=== PATIENT | male | born 1960 | race Caucasian/White ===

== ENCOUNTER → 2016-05-31 | Outpatient (REF) | payer OTHER ==
[~2016-05-31] MED LIST: ALFU10TA2 PO; AMLO5TAB2 PO; ASPI1TAB PO; FINA5TAB2 PO; GAVICHW PO; LOSA100T36 PO; LOVA40TA PO; OMEP20CA3 PO; [UNRECOGNIZED DRUG - CODE] PO
== END ==
LOC: M LAB REF 14:58
PROVIDERS: ATTEND Physician Assistant Medical
DX: R50.9 Fever, unspecified (principal)

== ENCOUNTER → 2016-12-27 | Outpatient (REF) | payer OTHER | LOC: M LABDRAW1 10:50 | PROVIDERS: ATTEND Urology | DX: R97.20 Elevated prostate specific antigen [PSA] (principal) ==

== ENCOUNTER → 2017-05-27 | Outpatient (REF) | payer OTHER ==
[2017-05-27 16:34] LABS: MAGNESIUM LEVEL 2.1 MG/DL (1.8-2.4)
[2017-05-27 16:45] LABS: TOTAL 25(OH) VITAMIN D 18.6 NG/ML (30.0-100.0)
== END ==
LOC: M LABDRAW1 15:46
DX: R10.13 Epigastric pain (principal); K20.9 Esophagitis, unspecified; K21.9 Gastro-esophageal reflux disease without esophagitis; Z12.11 Encounter for screening for malignant neoplasm of colon; R14.1 Gas pain

== ENCOUNTER → 2017-07-15 | Outpatient (CLI) | payer BC, OTHER | LOC: M RAD 15:03 | DX: J34.2 Deviated nasal septum (principal); J33.0 Polyp of nasal cavity; J30.9 Allergic rhinitis, unspecified | CPT/HCPCS: 70486 ==

== ENCOUNTER → 2017-10-20 | Outpatient (CLI) | payer BC, OTHER | LOC: M SLEEP 19:26 | DX: G47.33 Obstructive sleep apnea (adult) (pediatric) (principal) | CPT/HCPCS: 95810 ==

== ENCOUNTER → 2017-11-23 | Outpatient (CLI) | payer BC, OTHER | LOC: M SLEEP 19:30 | DX: G47.33 Obstructive sleep apnea (adult) (pediatric) (principal) | CPT/HCPCS: 95811 ==

== ENCOUNTER → 2018-01-17 | Outpatient (REF) | payer OTHER, BC | LOC: M LABDRAW1 08:47 | DX: K21.9 Gastro-esophageal reflux disease without esophagitis (principal); E55.9 Vitamin D deficiency, unspecified ==

== ENCOUNTER → 2018-08-24 | Outpatient (REF) | payer OTHER ==
[~2018-08-24] MED LIST changes: -AMLO5TAB2 PO; +AMLO5TAB6 PO; -ASPI1TAB PO; +ASPI81TA26 PO; -LOSA100T36 PO; +LOSA100T50 PO
== END ==
LOC: M LAB REF 11:56
PROVIDERS: ATTEND Orthopaedic Surgery
DX: G56.02 Carpal tunnel syndrome, left upper limb (principal)

== ENCOUNTER → 2019-01-04 | Outpatient (CLI) | payer BC, OTHER ==
[~2019-01-04] MED LIST changes: -OMEP20CA3 PO; +OMEP20CA4 PO
== END ==
LOC: M LAB 15:59
PROVIDERS: ATTEND Urology
DX: R97.20 Elevated prostate specific antigen [PSA] (principal)

== ENCOUNTER → 2019-06-09 | Outpatient (REF) | payer OTHER ==
[~2019-06-09] MED LIST changes: -ALFU10TA2 PO; +ALFU10TA3 PO; +OMEP1CAP73 PO; -OMEP20CA4 PO
== END ==
LOC: M LAB REF 16:40
PROVIDERS: ATTEND Physician Assistant Medical
DX: R50.9 Fever, unspecified (principal)

== ENCOUNTER → 2019-06-27 | Outpatient (REF) | payer OTHER ==
[2019-06-27 09:55] LABS: HEMATOCRIT 41.6 % (42.0-52.0); HEMOGLOBIN 14.1 g/dl (13.5-17.5); MEAN CORPUSCULAR HEMOGLOBIN 30.1 pg (27.0-33.0); MEAN CORPUSCULAR HGB CONC 33.9 g/dl (32.0-36.5); MEAN CORPUSCULAR VOLUME 88.7 fl (80.0-96.0); PLATELET COUNT, AUTOMATED 220 10^3/uL (150-450); RED BLOOD COUNT 4.69 10^6/uL (4.30-6.10); WHITE BLOOD COUNT 4.5 10^3/uL (4.0-10.0)
[2019-06-27 10:07] LABS: ALBUMIN 3.7 GM/DL (3.2-5.2); ALT/SGPT 33 U/L (12-78); BILIRUBIN,TOTAL 0.9 MG/DL (0.2-1.0); BLOOD UREA NITROGEN 20 MG/DL (7-18); CALCIUM LEVEL 8.5 MG/DL (8.8-10.2); CARBON DIOXIDE LEVEL 29 MEQ/L (21-32); CHLORIDE LEVEL 110 MEQ/L (98-107); CHOLESTEROL LEVEL 128 MG/DL (<200); CHOLESTEROL RISK RATIO 3.121 (<5); GLOMERULAR FILTRATION RATE > 60.0 (>49); GLUCOSE, FASTING 122 MG/DL (70-100); HDL CHOLESTEROL 41 MG/DL (>40); LDL CHOLESTEROL 76 MG/DL (<100); NON-HDL-C 87 MG/DL; POTASSIUM SERUM 4.1 MEQ/L (3.5-5.1); PROSTATIC SPECIFIC AG MONITOR 1.88 NG/ML (< 4.00); SODIUM LEVEL 142 MEQ/L (136-145); TOTAL PROTEIN 6.6 GM/DL (6.4-8.2); TRIGLYCERIDES LEVEL 54 MG/DL (<150)
[2019-06-27 11:04] LABS: HEMOGLOBIN A1c 5.6 %
== END ==
LOC: M LABDRAW1 08:06
PROVIDERS: ATTEND Internal Medicine Cardiovascular Disease
DX: I11.9 Hypertensive heart disease without heart failure (principal); E78.5 Hyperlipidemia, unspecified; R35.1 Nocturia

== ENCOUNTER 2020-02-29 14:41 | Emergency (ER) | payer BC, OTHER ==
[~2020-02-29] VITALS: Ht 170.2 cm; Wt 91.6 kg
[~2020-02-29 14:41] MED LIST changes: +AMLO1TAB24 PO; -AMLO5TAB6 PO
[2020-02-29] MEDS ORDERED: ATOR40TA75 PO (14:58)
[2020-02-29] MEDS ORDERED: SUCR1TAB56 PO (14:58)
[2020-02-29] MEDS ORDERED: MAGICMW SSP (14:58)
[2020-02-29] MEDS ORDERED: LANS30CA93 PO (14:58)
[2020-02-29] MEDS ORDERED: LEVOTAB10 PO (14:58)
[2020-02-29] MEDS ORDERED: vitamin d3 PO (14:58)
[2020-02-29] MEDS ORDERED: VALS1TAB68 PO (14:58)
[2020-02-29] MEDS ORDERED: METO1TAB87 PO (14:58)
--- NOTE | 2020-02-29 15:07 | REP ---
INDICATION: CHEST PAIN. COMPARISON: July 31, 2015.. TECHNIQUE: Single view upright AP portable radiograph. FINDINGS: The lungs are well inflated and clear. Pleural angles are sharp. Heart size is normal. Pulmonary vasculature is not increased. No significant bony abnormality. IMPRESSION: Negative portable chest x-ray. <Electronically signed by Brien Campoverde > 02/29/20 [id number]
[2020-02-29 15:12] LABS: BASO # 0.1 10^3/uL (0.0-0.2); BASO % 0.9 % (0.0-1.0); EOS # 0.1 10^3/uL (0.0-0.5); EOS % 1.3 % (0.0-3.0); HEMATOCRIT 43.9 % (42.0-52.0); LYMPH # 1.9 10^3/uL (1.5-5.0); LYMPH % 23.5 % (24.0-44.0); MEAN CORPUSCULAR HEMOGLOBIN 29.9 pg (27.0-33.0); MEAN CORPUSCULAR HGB CONC 34.2 g/dl (32.0-36.5); MEAN CORPUSCULAR VOLUME 87.6 fl (80.0-96.0); MONO # 0.6 10^3/uL (0.0-0.8); NEUTROPHILS # 5.3 10^3/uL (1.5-8.5); PLATELET COUNT, AUTOMATED 309 10^3/uL (150-450); RED BLOOD COUNT 5.01 10^6/uL (4.30-6.10)
--- NOTE | 2020-02-29 19:29 | ECGEPIP ---
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
--- NOTE | 2020-02-29 19:31 | ECGEPIP ---
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
[2020-02-29 20:10] VITALS: BP 148/89
== END 2020-02-29 20:20 | disposition home or self-care (01) ==
LOC: M ED 14:41
DX: R07.89 Other chest pain (principal); R00.1 Bradycardia, unspecified; I10 Essential (primary) hypertension; E78.5 Hyperlipidemia, unspecified; G47.33 Obstructive sleep apnea (adult) (pediatric); K21.9 Gastro-esophageal reflux disease without esophagitis; Z79.899 Other long term (current) drug therapy; Z79.82 Long term (current) use of aspirin

== ENCOUNTER → 2020-03-06 | Outpatient (CLI) | payer BC, OTHER ==
[~2020-03-06] MED LIST changes: +ATOR40TA75 PO; +LANS30CA93 PO; +LEVOTAB10 PO; +MAGICMW SSP; +METO1TAB87 PO; +SUCR1TAB56 PO; +VALS1TAB68 PO; +vitamin d3 PO
== END ==
LOC: M LABSMTC 11:25
PROVIDERS: ATTEND Internal Medicine Cardiovascular Disease
DX: Z20.828 Contact with and (suspected) exposure to other viral communicable diseases (principal)

== ENCOUNTER → 2020-03-07 | Outpatient (CLI) | payer BC, OTHER ==
[2020-03-07 15:40] LABS: BASO # 0.1 10^3/uL (0.0-0.2); BASO % 1.2 % (0.0-1.0); EOS # 0.1 10^3/uL (0.0-0.5); EOS % 0.7 % (0.0-3.0); HEMOGLOBIN 14.4 g/dl (13.5-17.5); LYMPH # 1.5 10^3/uL (1.5-5.0); LYMPH % 21.9 % (24.0-44.0); MEAN CORPUSCULAR HEMOGLOBIN 30.1 pg (27.0-33.0); MEAN CORPUSCULAR HGB CONC 33.5 g/dl (32.0-36.5); MONO # 0.6 10^3/uL (0.0-0.8); MONO % 8.5 % (0.0-5.0); NEUTROPHILS # 4.5 10^3/uL (1.5-8.5); NEUTROPHILS % 66.8 % (36.0-66.0); PLATELET COUNT, AUTOMATED 275 10^3/uL (150-450); RED BLOOD COUNT 4.78 10^6/uL (4.30-6.10); WHITE BLOOD COUNT 6.7 10^3/uL (4.0-10.0)
[2020-03-07 16:08] LABS: BLOOD UREA NITROGEN 16 MG/DL (7-18); CALCIUM LEVEL 9.3 MG/DL (8.8-10.2); CARBON DIOXIDE LEVEL 30 MEQ/L (21-32); CHLORIDE LEVEL 107 MEQ/L (98-107); CREATININE FOR GFR 0.95 MG/DL (0.70-1.30); GLOMERULAR FILTRATION RATE > 60.0 (>49); GLUCOSE, FASTING 89 MG/DL (70-100); POTASSIUM SERUM 5.2 MEQ/L (3.5-5.1); SODIUM LEVEL 140 MEQ/L (136-145)
== END ==
LOC: M PLALAB 12:04
PROVIDERS: ATTEND Internal Medicine Cardiovascular Disease
DX: R94.39 Abnormal result of other cardiovascular function study (principal); R07.9 Chest pain, unspecified

== ENCOUNTER → 2020-07-03 | Outpatient (CLI) | payer BC, OTHER ==
[2020-07-04 10:33] LABS: HEMATOCRIT 44.2 % (42.0-52.0); HEMOGLOBIN 14.5 g/dl (13.5-17.5); MEAN CORPUSCULAR HEMOGLOBIN 30.2 pg (27.0-33.0); MEAN CORPUSCULAR HGB CONC 32.8 g/dl (32.0-36.5); MEAN CORPUSCULAR VOLUME 92.1 fl (80.0-96.0); PLATELET COUNT, AUTOMATED 258 10^3/uL (150-450); WHITE BLOOD COUNT 6.4 10^3/uL (4.0-10.0)
[2020-07-04 11:09] LABS: ALBUMIN 4.2 GM/DL (3.2-5.2); ALT/SGPT 27 U/L (12-78); BILIRUBIN,DIRECT 0.2 MG/DL (0.0-0.2); BILIRUBIN,TOTAL 0.6 MG/DL (0.2-1.0); C REACTIVE PROTEIN QUANTITATIV < 0.30 MG/DL (0.00-0.30); LIPASE 137 U/L (73-393); TOTAL PROTEIN 7.2 GM/DL (6.4-8.2)
== END ==
LOC: M PLALAB 14:35
PROVIDERS: ATTEND Internal Medicine Gastroenterology
DX: R10.11 Right upper quadrant pain (principal); R14.1 Gas pain; K30 Functional dyspepsia

== ENCOUNTER → 2020-07-11 | Outpatient (CLI) | payer BC, OTHER ==
--- NOTE | 2020-07-11 10:28 | REP ---
INDICATION: RUQ ABD PAIN. COMPARISON: None. TECHNIQUE: Right upper quadrant sonography. FINDINGS: Scanning through the right upper quadrant of the abdomen demonstrates a normal sized, thin-walled gallbladder without evidence of stone or polyp. Common bile duct is normal measuring 0.5 cm in greatest diameter. There is a 0.8 cm cyst in the right lobe of the liver. There is evidence of fatty infiltration of the liver with some sparing near the gallbladder. No other focal liver lesion is seen. Liver size is normal. No pancreatic abnormality is observed. No right renal abnormality is seen. There is no evidence of ascites. The right kidney measures 10.3 x 6.0 x 5.6 cm. There are 2 right renal cysts laterally at mid pole level. These measure 1.6 and 1.2 cm in greatest diameter respectively. IMPRESSION: Evidence of fatty infiltration of the liver. Small liver cyst and right renal cysts. Otherwise negative right upper quadrant sonography. <Electronically signed by Brien Campoverde > 07/11/20 1024
== END ==
LOC: M RAD 07:35
PROVIDERS: ATTEND Internal Medicine Gastroenterology
DX: K76.0 Fatty (change of) liver, not elsewhere classified (principal); K76.89 Other specified diseases of liver; N28.1 Cyst of kidney, acquired; R10.11 Right upper quadrant pain; R14.1 Gas pain; K30 Functional dyspepsia

== ENCOUNTER → 2020-08-21 | Outpatient (CLI) | payer BC, OTHER ==
--- NOTE | 2020-08-21 09:32 | REP ---
INDICATION: ABD PAIN LUQ PAIN CHEST PAIN. COMPARISON: None. TECHNIQUE/RADIOTRACER AND DOSE: Following the intravenous administration of 1.05 mCi technetium 99 M sulfur colloid in 2 scrambled eggs and 6 oz of water, multiple images of the upper abdomen are performed in the anterior and posterior projections for 90 minutes. FINDINGS: The gastric activity is measured. At the end of 90 minutes 7% of the ingested activity has emptied from the stomach. The T1/2 is 604 minutes which is markedly increased. IMPRESSION: Markedly increased gastric emptying time. <Electronically signed by Grady Espino > 08/21/20 0994
== END ==
LOC: M RAD 07:35
PROVIDERS: ATTEND Internal Medicine Gastroenterology
DX: K30 Functional dyspepsia (principal); R10.12 Left upper quadrant pain; R07.9 Chest pain, unspecified; K44.9 Diaphragmatic hernia without obstruction or gangrene
CPT/HCPCS: 78264; A9541

== ENCOUNTER → 2020-12-24 | Outpatient (CLI) | payer OTHER ==
[~2020-12-24] MED LIST changes: +ISOVUE-300 61% 50ML VIAL As Ordered ONE; +PROHANCE 279.3MG/ML 5ML VIAL As Ordered ONE
--- NOTE | 2020-12-24 08:57 | REP ---
INDICATION: PAIN LT SHOULDER,R/O RTC TEAR,BICEPS,LABRAL TEAR. COMPARISON: None. TECHNIQUE: Coronal oblique T1, T2 fat sat, sagittal oblique T2 fat sat, axial T2 fat sat, gradient echo. Post arthrogram T1 fat sat and T2 fat sat in multiple planes. FINDINGS: Rotator cuff: There is [id number] tendinopathy/tendinitis of the supraspinatus tendon. There is a partial bursal surface tear at the anterior leading edge of the tendon. There is a partial undersurface tear of the distal infraspinatus tendon. Acromioclavicular joint: There are moderate hypertrophic degenerative changes of the acromioclavicular joint. Acromion: Type 1 Biceps Tendon: There is a complete tear of the proximal biceps tendon. The torn tendon is retracted in the bicipital groove. Hill Sach's deformity: None. Deltoid muscle: No abnormal signal. Biceps labral complex: Torn. Labrum: There is a diffuse SLAP tear. There is tear of the anterior labrum. Cartilage: The anterior glenoid cartilage demonstrates a linear tear. Bone marrow: There is mild subchondral marrow edema in the distal clavicle. Joint fluid: No effusion. IMPRESSION: There is [id number] tendinopathy/tendinitis of the supraspinatus tendon. There is a partial bursal surface tear at the anterior leading edge of the tendon. There is a partial undersurface tear of the distal infraspinatus tendon. There are mild hypertrophic degenerative changes of the acromioclavicular joint. There is a complete tear of the proximal biceps tendon. There is diffuse SLAP tear. There is a tear of the anterior labrum with an adjacent linear tear of the glenoid cartilage. <Electronically signed by Grady Espino > 12/24/20 [id number]
--- NOTE | 2020-12-24 16:27 | REP ---
INDICATION: PAIN LT SHOULDER,R/O RTC TEAR,BICEPS,LABRAL TEAR COMPARISON: None. TECHNIQUE: The procedure was performed under the direct supervision of Dr. Espino. The benefits and risks including but not limited to pain, infection, bleeding and anaphylaxis were explained to the patient and informed consent was obtained. The left glenohumeral joint space was localized using fluoroscopic guidance. The skin was prepped and draped in a sterile fashion. 1% lidocaine was used as a local anesthetic. Using fluoroscopic guidance a 22 gauge spinal needle was inserted and advanced into the joint. 0.5 ml of Isovue-300 was injected to verify placement. 11 ml of a solution containing 20 ml of sterile saline and 0.15 ml of ProHance was injected into the joint. The needle was removed and the patient was taken to MRI for postprocedural imaging. The patient tolerated the procedure well and there were no immediate complications. Less than 6 seconds of fluoro time was utilized for this procedure. FINDINGS: None IMPRESSION: Fluoro guidance for left shoulder MRI arthrogram injection. <Electronically signed by Heron Vasquez > 12/24/20 1531 <Electronically signed by Grady Espino > 12/24/20 1624
== END ==
LOC: M RADPRO 06:31
PROVIDERS: ATTEND Physician Assistant Surgical
DX: R93.7 Abnormal findings on diagnostic imaging of other parts of musculoskeletal system (principal); M25.512 Pain in left shoulder
CPT/HCPCS: 23350; 73223; 77002; A9576; Q9967

== ENCOUNTER → 2021-01-21 | Outpatient (REF) | payer OTHER ==
[~2021-01-21] MED LIST changes: -ISOVUE-300 61% 50ML VIAL As Ordered ONE; -PROHANCE 279.3MG/ML 5ML VIAL As Ordered ONE
== END ==
LOC: M LAB REF 09:59
PROVIDERS: ATTEND Internal Medicine Gastroenterology
DX: R19.7 Diarrhea, unspecified (principal)

== ENCOUNTER → 2021-05-13 | Outpatient (REF) | payer OTHER ==
[~2021-05-13] MED LIST changes: +LOSA100T45 PO; -LOSA100T50 PO
[2021-05-13 13:20] LABS: APPEARANCE, URINE CLEAR (CLEAR); BACTERIA, URINE AUTO NEGATIVE (NEGATIVE); BILIRUBIN, URINE AUTO NEGATIVE (NEGATIVE); BLOOD, URINE BLOOD NEGATIVE (NEGATIVE); COLOR, URINE STRAW (YELLOW); GLUCOSE, URINE (UA) AUTO NEGATIVE (NEGATIVE); KETONE, URINE AUTO NEGATIVE (NEGATIVE); LEUKOCYTE ESTERASE, URINE AUTO NEGATIVE (NEGATIVE); NITRITE, URINE AUTO NEGATIVE (NEGATIVE); PROTEIN, URINE AUTO NEGATIVE (NEGATIVE); RBC, URINE AUTO 0 /HPF (0-3); SPECIFIC GRAVITY URINE AUTO 1.008 (1.002-1.035); SQUAMOUS EPITHELIAL CELL UR AU 0 /HPF (0-6); UROBILINOGEN, URINE AUTO 0.2 mg/dL (0.0-2.0); WBC, URINE AUTO 0 /HPF (0-3)
== END ==
LOC: M LAB REF 13:05
PROVIDERS: ATTEND Registered Nurse Emergency
DX: R35.0 Frequency of micturition (principal)

== ENCOUNTER → 2021-07-31 | Outpatient (REF) | payer OTHER | LOC: M LAB REF 12:05 | PROVIDERS: ATTEND Physician Assistant | DX: U07.1 COVID-19 (principal) ==

== ENCOUNTER → 2023-04-19 | Outpatient (CLI) | payer BC, OTHER ==
[~2023-04-19] MED LIST changes: -LOSA100T45 PO; +LOSA100T46 PO
== END ==
LOC: M RAD 10:58
PROVIDERS: ATTEND Internal Medicine Gastroenterology
DX: R10.9 Unspecified abdominal pain (principal)
CPT/HCPCS: 78227; A9537

== ENCOUNTER → 2023-11-11 | Outpatient (CLI) | payer BC, OTHER ==
[~2023-11-11] MED LIST changes: +ALFU10TA23 PO; -ALFU10TA3 PO
[2023-11-11 19:45] LABS: BLOOD UREA NITROGEN 20 MG/DL (9-23); CALCIUM LEVEL 8.9 MG/DL (8.3-10.6); CARBON DIOXIDE LEVEL 26 MMOL/L (20-31); CHLORIDE LEVEL 107 MMOL/L (98-107); CREATININE FOR GFR 1.06 MG/DL (0.70-1.30); GLOMERULAR FILTRATION RATE > 60.0 (>49); GLUCOSE, FASTING 117 MG/DL (74-106); SODIUM LEVEL 140 MMOL/L (136-145)
== END ==
LOC: M WUC 15:30
PROVIDERS: ATTEND Ophthalmology
DX: H02.413 Mechanical ptosis of bilateral eyelids (principal)

== ENCOUNTER → 2024-06-26 | Outpatient (CLI) | payer MEDICARE, BC | LOC: M RAD 08:34 | PROVIDERS: ATTEND Urology | DX: N20.0 Calculus of kidney (principal) ==

== ENCOUNTER → 2024-12-13 | Outpatient (CLI) | payer MEDICARE, BC | LOC: M RAD 08:45 | PROVIDERS: ATTEND Urology | DX: N20.0 Calculus of kidney (principal) ==